=== PATIENT | male | born 1995 | race Caucasian/White ===

== ENCOUNTER 2016-10-04 13:10 | Emergency (ER) | payer OTHER ==
[2016-10-04 14:57] VITALS: BP 145/67
--- NOTE | 2016-10-04 15:25 | UC ---
Throat Pain/Nasal Yoan HPI - HPI Summary HPI Summary: Has been having increasing nasal congestion, sneezing, coughing, wheezing, and eye redness/itching for several days. - History of Current Complaint Chief Complaint: UCGeneralIllness Stated Complaint: SINUS COMPLAINT Time Seen by Provider: 10/04/16 15:01 Hx Obtained From: Patient Onset/Duration: Gradual Onset, Lasting Days Severity: Moderate Cough: Nonproductive Associated Signs & Symptoms: Positive: Wheezing, Sinus Discomfort, Nasal Discharge - Allergies/Home Medications Allergies/Adverse Reactions: Allergies Allergy/AdvReac Type Severity Reaction Status Date / Time No Known Allergies Allergy Verified 10/04/16 14:46 Home Medications: Home Medications Fexofenadine (NF) [Gabriela (NF)] 60 mg PO DAILY 10/04/16 [History Confirmed ] PMH/Surg Hx/FS Hx/Imm Hx Previously Healthy: Yes - Surgical History Surgical History: None - Family History Known Family History: Positive: Hypertension - Social History Lives: Alone Alcohol Use: Occasionally Substance Use Type: None Smoking Status (MU): Never Smoked Tobacco - Immunization History Most Recent Influenza Vaccination: 2014 Review of Systems Constitutional: Negative Skin: Negative Eyes: Eye Redness ENT: Nasal Discharge Respiratory: Shortness Of Breath, Cough Cardiovascular: Negative Gastrointestinal: Negative Genitourinary: Negative Motor: Negative Neurovascular: Negative Musculoskeletal: Negative Neurological: Negative Psychological: Negative All Other Systems Reviewed And Are Negative: Yes Physical Exam Triage Information Reviewed: Yes Appearance: No Pain Distress, Well-Nourished Vital Signs: Initial Vital Signs Temp 98.5 F 10/04/16 14:48 Pulse 86 10/04/16 14:48 Resp 20 10/04/16 14:48 BP 145/67 10/04/16 14:48 Pulse Ox 98 10/04/16 14:48 Vital Signs Reviewed: Yes Eye Exam: Other - PERRL Eyes: Positive: Conjunctiva Inflamed - bilat, eyelids puffy ENT: Positive: Hearing grossly normal, Pharynx normal, Nasal congestion, TMs normal. Negative: Tonsillar swelling, Tonsillar exudate Dental Exam: Normal Neck exam: Normal Neck: Positive: Supple, Nontender, No Lymphadenopathy Respiratory: Positive: No respiratory distress, Wheezing - minimal at bases Cardiovascular Exam: Normal Cardiovascular: Positive: RRR, No Murmur Musculoskeletal Exam: Normal Musculoskeletal: Positive: Strength Intact, ROM Intact Neurological Exam: Normal Neurological: Positive: Alert Psychological Exam: Normal Skin Exam: Normal Throat Pain/Nasal Course/Dx - Differential Dx/Diagnosis Provider Diagnoses: allergic rhinitis. bronchospasm. allergic conjunctivitis Discharge - Discharge Plan Condition: Stable Disposition: HOME Prescriptions: Albuterol HFA INHALER* [Ventolin HFA Inhaler*] 1 - 2 puff INH Q4H PRN #1 mdi PRN Reason: Wheezing Mometasone NASAL (NF) [Nasonex (NF)] 2 spray BOTH NARES DAILY #1 nasal.spr predniSONE TAB* [Deltasone TAB*] 50 mg PO DAILY #3 tab Patient Education Materials: Allergic Rhinitis (ED), Bronchospasm (ED) Additional Instructions: If you can tolerate it, start using sinus lavage (like a neti pot) 1-2 times per day to rinse out the allergens and debris. Use your gabriela in the morning Use 1-2 diphenhydramine at bedtime Use the nasal spray every day, even after your symptoms resolve (I recommend you use it for at least a month, or as long as your allergy season lasts) Take the prednisone until it is gone Use the albuterol inhaler as needed -- I expect your chest symptoms to improve significantly within a few days. If they don't, or if you find you need the inhaler every day, please see a primary care provider. If you still have eye symptoms despite all the above treatment, you can add an occular antihistamine (such as Zaditor or Naphcon-A)
== END 2016-10-04 15:31 | disposition home or self-care (01) ==
LOC: UCEAST 13:10
DX: J30.9 Allergic rhinitis, unspecified (principal); J98.01 Acute bronchospasm; H10.10 Acute atopic conjunctivitis, unspecified eye
CPT/HCPCS: 99202; G0463